=== PATIENT | female | born 1965 | race Two or more races ===

== ENCOUNTER 2023-08-28 08:29 | Inpatient (IN) | payer OTHER ==
[~2023-08-28] VITALS: Ht 160 cm; Wt 95.3 kg
[2023-08-28 09:06] LABS: HEMOGLOBIN 15.6 g/dL (12.0-15.00); MEAN CELL VOLUME 84.3 fL (80.00-100.00); MEAN CORPUSCULAR HEMOGLOBIN 28.6 pg (27.00-32.0); PLATELET COUNT 318 K/uL (150-450); RED BLOOD COUNT 5.45 M/uL (4.00-6.00); RED CELL DISTRIBUTION WIDTH 13.6 % (11.5-14.5)
[2023-08-28 14:46] LABS: INR 0.98; PARTIAL THROMBOPLASTIN TIME 25.9 SECONDS (22.0-34.0); PROTHROMBIN TIME 10.3 SECONDS (9.0-11.5)
[2023-08-28 14:48] LABS: ALBUMIN 3.8 gm/dL (3.4-5.0); BILIRUBIN TOTAL 0.86 mg/dL (0.3-1.2); CALCIUM 8.9 mg/dL (8.5-10.1); CREATININE SERUM 0.71 mg/dL (0.55-1.02); GFR 84.55; POTASSIUM 3.46 mEq/L (3.5-5.1); TOTAL PROTEIN 7.8 gm/dL (6.4-8.2)
[2023-08-29 13:34] LABS: URINE APPEARANCE Clear; URINE BILIRRUBIN Negative (NEGATIVE); URINE BLOOD Negative; URINE COLOR Yellow; URINE GLUCOSE Negative (NEGATIVE); URINE LEUKOCYTE Negative; URINE NITRATE Negative; URINE PROTEIN Negative (NEGATIVE)
[2023-08-29 13:37] LABS: URINE BACTERIA 449.7 uL (0.0-1933); URINE EPITHELIAL CELLS 27.6 uL (0.0-38.8); URINE RBC 2.4 uL (0.0-20.8); URINE WBC 12.6 uL (0.0-23.2)
[2023-08-30 08:05] LABS: HEMATOCRIT 41.8 % (36.0-45.00); HEMOGLOBIN 13.9 g/dL (12.0-15.00); RED BLOOD COUNT 4.94 M/uL (4.00-6.00)
[2023-08-30] MEDS ORDERED: OXYC1TAB9 PO (20:17)
== END 2023-08-31 12:09 | disposition home or self-care (01) | DRG 512 ==
LOC: ER 08:29 → SEC-K 16:30 → SURH 16:30
PROVIDERS: General Practice; ADMIT Orthopaedic Surgery; ATTEND Orthopaedic Surgery
PROC: BP2 Imaging, Non-Axial Upper Bones, Computerized Tomography (CT Scan) (ICD-10-PCS; 2023-08-28)
PROC: 3E0T3BZ Introduction of Anesthetic Agent into Peripheral Nerves and Plexi, Percutaneous Approach (ICD-10-PCS; 2023-08-29)
PROC: 0PSL04Z Reposition Left Ulna with Internal Fixation Device, Open Approach (ICD-10-PCS; principal; 2023-08-29 16:45)
DX: S52.022A Displaced fracture of olecranon process without intraarticular extension of left ulna, initial encounter for closed fracture (principal); W18.09XA Striking against other object with subsequent fall, initial encounter; Y93.9 Activity, unspecified; Y92.019 Unspecified place in single-family (private) house as the place of occurrence of the external cause; Y99.9 Unspecified external cause status

== ENCOUNTER 2024-02-12 12:07 | Emergency (ER) | payer OTHER ==
[~2024-02-12] VITALS: Ht 167.6 cm; Wt 99.8 kg
[~2024-02-12 12:07] MED LIST: OXYC1TAB9 PO
== END 2024-02-12 16:27 | disposition home or self-care (01) ==
LOC: ER 12:07
DX: I87.2 Venous insufficiency (chronic) (peripheral) (principal)

== ENCOUNTER 2024-08-18 10:30 | Emergency (ER) | payer OTHER ==
[~2024-08-18] VITALS: Ht 251.5 cm; Wt 99.8 kg
[2024-08-18] MEDS ORDERED: TRAMADOL HCL 50 MG TABLET PO STA (12:25)
== END 2024-08-18 14:22 | disposition home or self-care (01) ==
LOC: ER 10:31
DX: M25.572 Pain in left ankle and joints of left foot (principal); W18.39XA Other fall on same level, initial encounter; Y93.89 Activity, other specified; Y92.018 Other place in single-family (private) house as the place of occurrence of the external cause

== ENCOUNTER 2025-08-11 16:36 | Emergency (ER) | payer OTHER ==
[~2025-08-11] VITALS: Ht 167.6 cm; Wt 101.2 kg
[2025-08-11] MEDS ORDERED: 0.9 % SODIUM CHLORIDE 500 ML IV SCH (18:30)
[2025-08-11] MEDS ORDERED: LACTOBACILLUS ACIDOPHILUS 1 CAP CAP PO ONE ×3 (18:30→19:44)
[2025-08-11] MEDS ORDERED: MORPHINE SULFATE 4 MG/ML CARTRIDGE IV ONE (18:30)
[2025-08-11] MEDS ORDERED: FAMOTIDINE/PF 20 MG/2 ML VIAL IV ONE (18:30)
[2025-08-11] MEDS ORDERED: ONDANSETRON HCL 2 MG/ML VIAL IV ONE (18:30)
[2025-08-11] MEDS ORDERED: DEXAMETHASONE SODIUM PHOSPHATE 4 MG/ML VIAL IV ONE (18:30)
[2025-08-11] MEDS ORDERED: ONDANSETRON HCL 2 MG/ML VIAL ONE ×2 (19:09→19:44)
[2025-08-11] MEDS ORDERED: DEXAMETHASONE SODIUM PHOSPHATE 4 MG/ML VIAL ONE ×2 (19:09→19:44)
[2025-08-11] MEDS ORDERED: FAMOTIDINE/PF 20 MG/2 ML VIAL ONE ×2 (19:10→19:44)
[2025-08-11 19:51] LABS: BASO % 0.7 % (0.1-1.2); EOS # 0.25 (0.04-0.54); EOS % 2.7 % (0.7-7.0); LYMPH # 2.39 (1.18-3.74); LYMPH % 25.3 % (19.3-53.1); MEAN PLATELET VOLUME 9.10 fl (9.4-12.4); MONO # 0.75 (0.24-0.82); MONO % 8.0 % (4.7-12.5); NEUT # 5.94 (1.56-6.13); NEUT % 63.0 % (34.0-71.1); RED CELL DISTRIBUTION WIDTH 12.6 % (11.6-14.4)
[2025-08-11 20:10] LABS: ERYTHROCYTE SEDIMENTATION RATE 26 mm/hr (0-30)
[2025-08-11 20:13] LABS: URINE APPEARANCE Cloudy; URINE BILIRRUBIN Negative (NEGATIVE); URINE BLOOD Negative; URINE COLOR Yellow; URINE GLUCOSE Negative (NEGATIVE); URINE KETONE 15 (NEGATIVE); URINE LEUKOCYTE Negative; URINE NITRATE Negative; URINE PROTEIN Trace (NEGATIVE); URINE UROBILINOGEN 1.0 E.U./dl
[2025-08-11 20:17] LABS: URINE BACTERIA 2817.5 uL (0.0-1933); URINE EPITHELIAL CELLS 76.4 uL (0.0-38.8); URINE RBC 59.3 uL (0.0-20.8); URINE WBC 52.7 uL (0.0-23.2)
[2025-08-11 20:19] LABS: INR 1.04
[2025-08-11 20:29] LABS: ALT/SGPT 22.0 U/L (12-78); AST/SGOT 15.0 U/L (15-37); BILIRUBIN TOTAL 0.71 mg/dL (0.3-1.2); BUN CREA RATIO 21.0 (7.0-25.0); CREATININE SERUM 0.81 mg/dL (0.55-1.02); GFR 72.12; GLOBULINA 4.1 G/DL (2.4-3.5); GLUCOSE FASTING 91.0 mg/dL (65-100); OSMOLALITY SERUM 284.0 MOSM/KG (275-295)
[2025-08-11 20:34] LABS: URINE CAST 0.14 uL (0.0-1.40)
[2025-08-11 20:37] LABS: URINE CRYSTALS MODERATE /HPF; URINE MUCUS MODERATE
[2025-08-11 20:38] LABS: TYPE CELLS SQUAMOUS
[2025-08-11] MEDS ORDERED: CEFTRIAXONE SODIUM 2,000 MG VIAL IV ONE (23:45)
[2025-08-12] MEDS ORDERED: LEVOFLOXACIN750 MG PO (00:12)
[2025-08-12] MEDS ORDERED: DOLOGEN 325-11 EACH PO (00:12)
[2025-08-12] MEDS ORDERED: CEFTRIAXONE SODIUM 2,000 MG VIAL ONE (00:58)
[2025-08-12] MEDS ORDERED: DEXAMETHASONE SODIUM PHOSPHATE 4 MG/ML VIAL ONE (00:58)
[2025-08-12] MEDS ORDERED: DEXAMETHASONE SODIUM PHOSPHATE 4 MG/ML VIAL IM ONE (01:00)
== END 2025-08-12 02:09 | disposition home or self-care (01) ==
LOC: ER 16:36
DX: N39.0 Urinary tract infection, site not specified (principal); K57.90 Diverticulosis of intestine, part unspecified, without perforation or abscess without bleeding; R10.9 Unspecified abdominal pain; Z88.6 Allergy status to analgesic agent
CPT/HCPCS: 36415; 74177; Q9965

== ENCOUNTER 2025-08-17 02:13 | Emergency (ER) | payer OTHER ==
[~2025-08-17] VITALS: Ht 167.6 cm; Wt 99.8 kg
[~2025-08-17 02:13] MED LIST changes: +DOLOGEN 325-11 EACH PO; +LEVOFLOXACIN750 MG PO
[2025-08-17 03:23] LABS: BASO % 0.7 % (0.1-1.2); EOS # 0.25 (0.04-0.54); EOS % 3.1 % (0.7-7.0); LYMPH # 2.11 (1.18-3.74); LYMPH % 26.2 % (19.3-53.1); MEAN PLATELET VOLUME 9.20 fl (9.4-12.4); MONO # 0.69 (0.24-0.82); MONO % 8.6 % (4.7-12.5); NEUT # 4.91 (1.56-6.13); NEUT % 61.0 % (34.0-71.1); RED CELL DISTRIBUTION WIDTH 12.7 % (11.6-14.4)
[2025-08-17 04:02] LABS: URINE APPEARANCE Cloudy; URINE BILIRRUBIN Negative (NEGATIVE); URINE BLOOD Negative; URINE COLOR Yellow; URINE GLUCOSE Negative (NEGATIVE); URINE KETONE Negative (NEGATIVE); URINE LEUKOCYTE Negative; URINE NITRATE Negative; URINE PROTEIN Negative (NEGATIVE); URINE UROBILINOGEN 0.2 E.U./dl
[2025-08-17 04:05] LABS: URINE BACTERIA 567.6 uL (0.0-1933); URINE EPITHELIAL CELLS 16.9 uL (0.0-38.8); URINE RBC 25.3 uL (0.0-20.8); URINE WBC 20.1 uL (0.0-23.2)
[2025-08-17 04:22] LABS: ALT/SGPT 19.0 U/L (12-78); AST/SGOT 12.0 U/L (15-37); BILIRUBIN TOTAL 0.46 mg/dL (0.3-1.2); BUN CREA RATIO 24.0 (7.0-25.0); CREATININE SERUM 0.76 mg/dL (0.55-1.02); GFR 77.63; GLOBULINA 2.9 G/DL (2.4-3.5); GLUCOSE FASTING 103.0 mg/dL (65-100); OSMOLALITY SERUM 287.0 MOSM/KG (275-295)
[2025-08-17 04:43] LABS: URINE CAST 0.14 uL (0.0-1.40); URINE CRYSTALS MANY /HPF
[2025-08-17] MEDS ORDERED: LACTULOSE 20 G/30 ML BLIST.PACK PO STA (07:09)
[2025-08-17] MEDS ORDERED: MINERAL OIL 30 ML BLIST.PACK PO STA (07:09)
[2025-08-17] MEDS ORDERED: MAGNESIUM HYDROXIDE 400 MG/5 ML ML PO STA (07:10)
[2025-08-17] MEDS ORDERED: MINERAL OIL 30 ML BLIST.PACK ONE (07:50)
[2025-08-17] MEDS ORDERED: MAGNESIUM HYDROXIDE 30 ML BLIST.PACK PO ONE (07:50)
[2025-08-17] MEDS ORDERED: LACTULOSE 20 G/30 ML BLIST.PACK ONE (07:50)
== END 2025-08-17 08:33 | disposition home or self-care (01) ==
LOC: ER 02:13
PROVIDERS: Physician Assistant Medical
DX: R10.84 Generalized abdominal pain (principal); K59.00 Constipation, unspecified; N39.0 Urinary tract infection, site not specified; K57.90 Diverticulosis of intestine, part unspecified, without perforation or abscess without bleeding; R10.9 Unspecified abdominal pain; Z88.6 Allergy status to analgesic agent

== ENCOUNTER 2025-08-31 17:10 | Inpatient (IN) | payer OTHER ==
[~2025-08-31] VITALS: Ht 167.6 cm; Wt 99.8 kg
--- NOTE | 2025-08-31 18:12 | NUR ---
PTE ALERTA Y ORIENTADA X3 VERBALIZA QUE TIENE DOLOR AL ORINAR QUE SE LE IRADIA A LA ESPALDA SE LE CARMELO TRATAMIEMTO PARA EL HOGAR POR INFECION DE ORINA Y NO MEJORA. PTE DE GRANDA YUKI
--- NOTE | 2025-08-31 18:15 | NUR ---
PTE VERBALIZA QUE NO A PODIDO IR AL TONY COLTON MIRDANETTEX
[2025-08-31] MEDS ORDERED: 0.9 % SODIUM CHLORIDE 500 ML IV ONE (19:00)
[2025-08-31] MEDS ORDERED: FAMOTIDINE/PF 20 MG/2 ML VIAL IV ONE (19:00)
[2025-08-31] MEDS ORDERED: ONDANSETRON HCL 2 MG/ML VIAL IV ONE (19:00)
--- NOTE | 2025-08-31 20:06 | NUR ---
SE ORIENTA A PACIENTE SOBRE ORDEN MEDICA LA MISMA REFIERE ENTENDER Y ACEPTA.
[2025-08-31 20:10] LABS: BASO % 0.6 % (0.1-1.2); EOS # 0.25 (0.04-0.54); EOS % 2.4 % (0.7-7.0); LYMPH # 2.11 (1.18-3.74); LYMPH % 20.1 % (19.3-53.1); MEAN PLATELET VOLUME 9.30 fl (9.4-12.4); MONO # 0.67 (0.24-0.82); MONO % 6.4 % (4.7-12.5); NEUT # 7.37 (1.56-6.13); NEUT % 70.3 % (34.0-71.1); RED CELL DISTRIBUTION WIDTH 12.8 % (11.6-14.4)
[2025-08-31 20:26] LABS: INR 0.98
[2025-08-31 20:30] LABS: ALT/SGPT 36.0 U/L (12-78); AST/SGOT 23.0 U/L (15-37); BILIRUBIN TOTAL 0.72 mg/dL (0.3-1.2); BUN CREA RATIO 16.0 (7.0-25.0); CREATININE SERUM 0.69 mg/dL (0.55-1.02); GFR 86.78; GLOBULINA 4.0 G/DL (2.4-3.5); GLUCOSE FASTING 99.0 mg/dL (65-100); OSMOLALITY SERUM 283.0 MOSM/KG (275-295)
[2025-08-31 21:57] LABS: URINE APPEARANCE Clear; URINE BILIRRUBIN Negative (NEGATIVE); URINE BLOOD Negative; URINE COLOR Dark Yellow; URINE GLUCOSE Negative (NEGATIVE); URINE KETONE 15 (NEGATIVE); URINE LEUKOCYTE Trace; URINE NITRATE Positive; URINE PROTEIN Negative (NEGATIVE); URINE UROBILINOGEN 1.0 E.U./dl
[2025-08-31 22:01] LABS: URINE BACTERIA 320.3 uL (0.0-1933); URINE EPITHELIAL CELLS 20.7 uL (0.0-38.8); URINE RBC 5.2 uL (0.0-20.8); URINE WBC 7.3 uL (0.0-23.2)
[2025-08-31 22:09] LABS: COVID-19 AG NEGATIVE (NEGATIVE)
[2025-08-31 22:13] LABS: URINE CAST 0.00 uL (0.0-1.40)
[2025-08-31] MEDS ORDERED: CEFTRIAXONE SODIUM 1,000 MG VIAL IV ONE (23:00)
--- NOTE | 2025-09-01 01:00 | NUR ---
SE ORIENTA A PTE SOBRE TX MEDICO ORDENADO. SE REALIZA ERICK MUESTRAS FARIBA ORDEN MEDICA Y BAJO MEDIDAS ASEPTICAS. SE ADMINISTRA AB DE MEDICAMENTOS FARIBA ORDEN MEDICA. SE ENTREGA ENVASE PARA MUESTRA UC Y SE EDUCA SOBRE PROCESO DE COLECTA.
[2025-09-01] MEDS ORDERED: 0.9 % SODIUM CHLORIDE 1,000 ML IV SCH (09:00)
[2025-09-01] MEDS ORDERED: PANTOPRAZOLE SODIUM 40 MG/VIAL VIAL IV PUSH SCH (09:00)
[2025-09-01] MEDS ORDERED: ENOXAPARIN SODIUM 30 MG/0.3 ML SYRINGE SUBCUTANEO SCH (09:00)
[2025-09-01] MEDS ORDERED: PIPERACILLIN/TAZOBACTAM SODIUM 3.375 GM VIAL IV SCH (09:00)
[2025-09-01] MEDS ORDERED: MORPHINE SULFATE 2 MG/ML SYRINGE IV PRN (09:00)
[2025-09-01] MEDS ORDERED: HYOSCYAMINE SULFATE 0.125 MG TAB.SUBL SL PRN (09:00)
[2025-09-01 12:22] VITALS: BP 147/86
[2025-09-01] MEDS ORDERED: ACETAMINOPHEN 500 MG GEL..CAP PO ONE (15:52)
[2025-09-01] MEDS ORDERED: PIPERACILLIN/TAZOBACTAM SODIUM 3.375 GM VIAL IV ONE (16:42)
[2025-09-01] MEDS ORDERED: POLYETHYLENE GLYCOL 3350 17 GM BLIST.PACK PO SCH (21:00)
[2025-09-02] MEDS ORDERED: PIPERACILLIN/TAZOBACTAM SODIUM 3.375 GM VIAL IV SCH
[2025-09-02 02:40] VITALS: BP 112/73; O2SAT 96
[2025-09-02 06:19] LABS: BASO % 0.7 % (0.1-1.2); EOS # 0.20 (0.04-0.54); EOS % 3.3 % (0.7-7.0); LYMPH # 1.32 (1.18-3.74); LYMPH % 21.9 % (19.3-53.1); MEAN PLATELET VOLUME 9.70 fl (9.4-12.4); MONO # 0.47 (0.24-0.82); MONO % 7.8 % (4.7-12.5); NEUT # 3.99 (1.56-6.13); NEUT % 66.0 % (34.0-71.1); RED CELL DISTRIBUTION WIDTH 12.6 % (11.6-14.4)
[2025-09-02 08:31] VITALS: BP 123/73; O2SAT 97
[2025-09-02] MEDS ORDERED: LACTOBACILLUS ACIDOPHILUS 1 CAP CAP PO SCH (09:00)
[2025-09-02 17:44] VITALS: BP 124/77
[2025-09-03 03:01] VITALS: BP 115/69; O2SAT 98
[2025-09-03] MEDS ORDERED: ALPRAZOLAM0.5 MG PO (07:47)
[2025-09-03] MEDS ORDERED: HYOSCYAMINE0.125 M1 SL (07:47)
[2025-09-03] MEDS ORDERED: POLY119PG PO (07:48)
[2025-09-03] MEDS ORDERED: PROTONIX40 MG PO (07:48)
[2025-09-03] MEDS ORDERED: INTESTINEX680 M1 PO (07:48)
[2025-09-03] MEDS ORDERED: TRAM1TAB98 PO (07:50)
[2025-09-03] MEDS ORDERED: AUGMENTIN XR 11 EACH PO (07:52)
[2025-09-03 10:01] VITALS: BP 101/66; BP 143/77; O2SAT 96
== END 2025-09-03 13:21 | disposition home or self-care (01) | DRG 392 ==
LOC: ER 17:11 → MEDJ 09-01 09:18 → SEC-K 09-01 09:18 → MEDI 09-01 10:11 → SEC-K 09-01 10:21 → MEDJ 09-01 16:09
PROVIDERS: General Practice; ADMIT Internal Medicine; ATTEND Internal Medicine
PROC: BW21YZZ Computerized Tomography (CT Scan) of Abdomen and Pelvis using Other Contrast (ICD-10-PCS; principal; 2025-08-31)
DX: K57.32 Diverticulitis of large intestine without perforation or abscess without bleeding (principal); N39.0 Urinary tract infection, site not specified